=== PATIENT | male | born 1985 | race African-American/Black ===

== ENCOUNTER 2022-03-09 07:12 | Emergency (ER) | payer MEDICAID ==
[~2022-03-09] VITALS: Ht 167.6 cm; Wt 69.0 kg
[2022-03-09 07:24] VITALS: BP 113/72
[2022-03-09] MEDS ORDERED: TETRACAINE 0.5% OPHTH DROPS 4ML BOTHEYE ONE (08:30)
[2022-03-09] MEDS ORDERED: FLUORESCEIN SODIUM 1MG/STRIP BOTHEYE ONE (08:30)
[2022-03-09] MEDS ORDERED: CIPHCO EACH EAR (12:29)
[2022-03-09] MEDS ORDERED: POLY15DR31 EACHEYE (12:29)
== END 2022-03-09 13:45 | disposition home or self-care (01) ==
LOC: ER 07:12
DX: H10.213 Acute toxic conjunctivitis, bilateral (principal); Z91.013 Allergy to seafood
CPT/HCPCS: 99283